=== PATIENT | male | born 2000 | race Caucasian/White ===

== ENCOUNTER → 2021-02-06 | Emergency (ER) | payer OTHER ==
[~2021-02-06] VITALS: Ht 175.3 cm; Wt 70.3 kg
[~2021-02-06] MED LIST: ALBU8.5H8 INH; ALBUTEROL FS 2.5 MG/3 ML VIAL.NEB ONE; IPRATROPIUM NEB FS 0.5 MG/2.5 ML AMPUL.NEB ONE; PRED50TA PO; predniSONE 20 MG TABLET ONE
[2021-02-06 13:06] VITALS: BP 139/102
[2021-02-06] MEDS: predniSONE 20 MG TABLET PO ONE (13:16)
[2021-02-06] MEDS: ALBUTEROL FS 2.5 MG/3 ML VIAL.NEB NEB ONE ×2 (13:20→13:52)
[2021-02-06] MEDS: IPRATROPIUM NEB FS 0.5 MG/2.5 ML AMPUL.NEB NEB ONE ×2 (13:20→13:52)
== END | disposition home or self-care (01) ==
LOC: ER 13:07
DX: J45.901 Unspecified asthma with (acute) exacerbation (principal)
CPT/HCPCS: 94640 ×3; 99285; J7512